=== PATIENT | male | born 1995 | race Caucasian/White ===

== ENCOUNTER 2017-07-05 17:45 | Emergency (ER) | payer BC ==
[~2017-07-05] VITALS: Ht 180.3 cm; Wt 90.7 kg
[2017-07-05 18:50] VITALS: BP 113/57
== END 2017-07-05 18:50 | disposition home or self-care (01) ==
LOC: ED 17:45
DX: S93.402A Sprain of unspecified ligament of left ankle, initial encounter (principal); Y93.51 Activity, roller skating (inline) and skateboarding; Y93.67 Activity, basketball; Y92.89 Other specified places as the place of occurrence of the external cause; Y99.8 Other external cause status